=== PATIENT | female | born 1950 | race Caucasian/White ===

== ENCOUNTER 2022-04-12 00:58 | Day surgery (SDC) | payer MEDICARE, SELFPAY ==
[2022-03-29 14:34] VITALS: BMI 22.8
[2022-04-12 10:46] VITALS: BP 125/65; PULSE 65; RESP 16; TEMP 36.3; O2SAT 98
[2022-04-12] MEDS: LACTATED RINGERS 1,000 ML 150 ML IV CONT (11:00)
--- NOTE | 2022-04-12 11:10 | P.PNAN_ITS ---
Anes - Initial Pre Proc Eval Procedure: Operation Date: 04/12/22 11:30 Proposed Procedures p Screening Colonoscopy - Girma Machado MD Date/Time: 04/12/22 11:10 Surgeon: Girma Machado MD Pre Op Diagnosis: hx colon polyps Patient Data Age: 72 Gender: F Height: 1.6 m Weight: 58.1 kg Last Vital Signs Temp 36.3 C L 04/12/22 10:46 Pulse 65 04/12/22 10:46 Resp 16 04/12/22 10:46 BP 125/65 04/12/22 10:46 Pulse Ox 98 04/12/22 10:46 O2 Del Method Room Air 04/12/22 10:46 Allergies Allergy/AdvReac Type Severity Reaction Status Date / Time codeine Allergy Unknown Other Verified 04/12/22 10:45 morphine Allergy Unknown Other Verified 04/12/22 10:45 ANTIHISTAMINES Allergy Intermediate Other Uncoded 04/12/22 10:45 Home Medications Medication Instructions Recorded Confirmed Type calcium 600 mg capsule 600 mg PO DAILY 03/29/22 03/29/22 History cholecalciferol (vitamin D3) 125 125 mcg PO DAILY 03/29/22 03/29/22 History mcg (5,000 unit) tablet magnesium 500 mg tablet 500 mg PO DAILY 03/29/22 03/29/22 History melatonin 10 mg tablet 10 mg PO HS 03/29/22 03/29/22 History Patient hx anesthesia problems: other (vocal cord trauma) Family hx anesthesia problems: none Results Review: All pre-operative results and documents have been reviewed as part of the pre- operative evaluation. PMFSH Past Medical History Medical History Low back pain Multiple sclerosis Smoking Family History Family History Father Family history of lung cancer Other Family history of celiac disease Social History Social History Years smoked: 60 Smoking status: Former smoker Alcohol intake: never Substance use type: does not use Living arrangements: with family Spiritual care concerns: No Anes - Eval Final PreProcedure Day of Procedure 04/12/22 11:10 Patient weight: normal Heart: regular rate and rhythm Lungs: decreased breath sounds Airway: Mallampati scale class II Neurological: alert and oriented Last oral intake: >/= 8 hours ASA classification: III Emergent: no Anesthetic plan: proceed Anesthesia type and monitoring: general GIVS and standard monitoring Results Review: All pre-operative results and documents have been reviewed as part of the pre- operative evaluation. Informed Consent: The patient's anesthetic plan and its attendant risks and benefits were discussed with the patient/family/POA. Questions were solicited and answers provided to the satisfaction of the patient/family/POA.
--- NOTE | 2022-04-12 11:17 | PM.HPGS ---
History of Present Illness History of Present Illness Consent: Risks, benefits, and alternatives have been discussed and questions answered. Patient agrees to proceed with procedure. Chief complaint: hx colon polyps Narrative: Janette Jesus is a 72 year old female Presents for screening colonoscopy. Patient's current weight appetite bowel movements are normal. Patient denies abdominal pain. She has had no bleeding. 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 She has had occasional follow-up polyps. Most recent colonoscopy 2017 did not reveal polyps. Patient presents today for screening exam. Review of Systems Review of Systems: Review of systems noncontributory. PMFSH Past Medical History Medical History Low back pain Multiple sclerosis Smoking Family History Family History Father Family history of lung cancer Other Family history of celiac disease Social History Social History Years smoked: 60 Smoking status: Former smoker Alcohol intake: never Substance use type: does not use Living arrangements: with family Spiritual care concerns: No Meds Home Medications and Allergies Home Medications Medication Instructions Recorded Confirmed Type calcium 600 mg capsule 600 mg PO DAILY 03/29/22 03/29/22 History cholecalciferol (vitamin D3) 125 125 mcg PO DAILY 03/29/22 03/29/22 History mcg (5,000 unit) tablet magnesium 500 mg tablet 500 mg PO DAILY 03/29/22 03/29/22 History melatonin 10 mg tablet 10 mg PO HS 03/29/22 03/29/22 History Allergies Allergy/AdvReac Type Severity Reaction Status Date / Time codeine Allergy Unknown Other Verified 04/12/22 10:45 morphine Allergy Unknown Other Verified 04/12/22 10:45 ANTIHISTAMINES Allergy Intermediate Other Uncoded 04/12/22 10:45 Vital Signs Vital Signs - 24 hr 04/12/22 10:46 Temperature 97.4 F L Pulse Rate 65 Respiratory Rate 16 Blood Pressure 125/65 Pulse Oximetry 98 Oxygen Delivery Room Air Exam Narrative: Physical exam reveals patient to be alert. Vital signs stable. HEENT exam is unremarkable. Patient is anicteric. Lungs are clear to auscultation and percussion. Heart is without murmur or extra sounds. Abdomen bowel sounds present soft nontender with no organomegaly. Digital external rectal exam normal. Assessment and Plan Assessment and plan (1) History of colon polyps: Code(s): Z86.010 - Personal history of colonic polyps Status: Acute Assessment and Plan: Patient has a history of colon polyps in the past. This been recurrent in several follow-up exam is. One point required surgical resection. Plan for surveillance colonoscopy now and consider follow-up colonoscopy at 3-5 year intervals in the future.
[2022-04-12 11:39] VITALS: BP 110/60; PULSE 88; RESP 15; O2SAT 97
[2022-04-12 11:49] VITALS: BP 89/54; PULSE 94; RESP 19; O2SAT 97
[2022-04-12 11:59] VITALS: BP 103/55; PULSE 85; RESP 20; O2SAT 98
== END 2022-04-12 12:18 | disposition home or self-care (01) ==
PROVIDERS: PCP Physician Assistant Medical; Visit Provider Internal Medicine Gastroenterology
PROC: 0DJD8ZZ Inspection of Lower Intestinal Tract, Via Natural or Artificial Opening Endoscopic (ICD-10-PCS; CPT 45378; principal; 2022-04-12 11:30)
DX: Z12.11 Encounter for screening for malignant neoplasm of colon (principal); K64.8 Other hemorrhoids; K57.30 Diverticulosis of large intestine without perforation or abscess without bleeding; Z86.010 Personal history of colon polyps; G35 Multiple sclerosis; Z87.891 Personal history of nicotine dependence
CPT/HCPCS: G0105; J2704; J7120